=== PATIENT | male | born 1955 | race African-American/Black ===

== ENCOUNTER 2016-07-30 12:34 | Emergency (ER) | payer OTHER ==
[~2016-07-30] VITALS: Ht 177.8 cm; Wt 90.5 kg
[~2016-07-30 12:34] MED LIST: AMLO10TA2 PO; LISI10TA3 PO; TAMS5CAP PO
[2016-07-30 12:40] VITALS: BP 133/63; PULSE 81; RESP 14; TEMP 97.8; O2SAT 99
[2016-07-30] MEDS ORDERED: SODIUM CHLOR 0.9% 1000 ML INJ 1,000 ML IV ONE (12:44)
[2016-07-30] MEDS ORDERED: SODIUM CHLORIDE 0.9% FLUSH 10 ML FLUSH IVF PRN (12:45)
[2016-07-30 12:47] VITALS: BP 120/58; PULSE 78; RESP 14; RESP 15
--- NOTE | 2016-07-30 12:49 | PD ---
HPI Chief Complaint: Dizziness Time Seen by Provider: 12:47 Travel History International Travel<30 days: No Contact w/Intl Traveler<30days: No Traveled to known affect area: No History of Present Illness HPI Patient comes in complaining of dizziness and visual changes since resolved. Patient was reportedly standing outside by his truck when symptoms occurred. Patient's only known medical history reports his hypertension he reports that he took both his blood pressure pills this morning. Patient did have 2 beers prior to the symptoms occurring. Patient reports associated nausea but denies any vomiting, chest pain, shortness of breath, numbness or tingling anywhere, back pain, loss or change in bowel or bladder, numbness or weakness anywhere, loss of consciousness, or fevers. Patient states when the symptoms occurred he just sat down. Per EMS patient was hypotensive on scene and 90s systolically on initial evaluation patient was placed on oxygen and given fluids which resolved his blood pressure and symptoms. Patient states he feels fine currently. PFSH Past Medical History Blood Disorders: No Congestive Heart Failure: No Cerebrovascular Accident: No Diabetes: No Diminished Hearing: No Gastrointestinal Disorders: No Gout: Yes Hypertension: Yes Myocardial Infarction: No Renal Failure: No Seizures: No Ulcer: No Tetanus Vaccination: Unknown Influenza Vaccination: No Past Surgical History Abdominal Surgery: Yes (COLON MYIY-[id number] OF COLOSTOMY) Social History Alcohol Use: Yes (daily ) Tobacco Use: Yes Substance Use: No Allergies-Medications (Allergen,Severity, Reaction): Coded Allergies: Morphine (Verified Allergy, Mild, LOST 2 DAYS, 07/27/16) Reported Meds & Prescriptions Reported Meds & Active Scripts Active Flomax (Tamsulosin HCl) 0.4 Mg Cap 0.4 Mg PO HS Reported Lisinopril 10 Mg Tab 10 Mg PO DAILY Amlodipine (Amlodipine Besylate) 10 Mg Tab 10 Mg PO DAILY Review of Systems Except as stated in HPI: all other systems reviewed are Neg Physical Exam Narrative GENERAL: Well-developed, overly nourished, in no acute distress, and non-ill appearing. SKIN: Focused skin assessment warm and dry. HEAD: Atraumatic. Normocephalic. EYES: Pupils equal and round. EOMI. No scleral icterus. No injection or drainage. ENT: No nasal bleeding or discharge. Mucous membranes pink and moist. NECK: Trachea midline. Supple. No nuclear rigidity. CARDIOVASCULAR: Regular rate and rhythm. No murmur appreciated. RESPIRATORY: No accessory muscle use. No respiratory distress. Clear to auscultation. Breath sounds equal bilaterally. MUSCULOSKELETAL: No obvious deformities. No clubbing. No cyanosis. No edema. Full range of motion. NEUROLOGICAL: Awake and alert. No obvious cranial nerve deficits. Motor grossly within normal limits. Normal speech. PSYCHIATRIC: Appropriate mood and affect; insight and judgment normal. Data Data Last Documented VS Vital Signs Date Time Temp Pulse Resp B/P Pulse Ox O2 Delivery O2 Flow Rate FiO2 07/30/16 12:47 79 14 120/58 07/30/16 12:43 100 Nasal Cannula 2 07/30/16 12:40 97.8 Orders Electrocardiogram (07/30/16 12:44) Basic Metabolic Panel (Bmp) (07/30/16 12:44) Complete Blood Count With Diff (07/30/16 12:44) Magnesium (Mg) (07/30/16 12:44) Ckmb (Isoenzyme) Profile (07/30/16 12:44) Troponin I (07/30/16 12:44) Act Partial Throm Time (Ptt) (07/30/16 12:44) Prothrombin Time / Inr (Pt) (07/30/16 12:44) Urinalysis - C+S If Indicated (07/30/16 12:44) Chest, Single Ap (07/30/16 12:44) Ct Brain W/O Iv Contrast(Rout) (07/30/16 12:44) Ecg Monitoring (07/30/16 12:44) Iv Access Insert/Monitor (07/30/16 12:44) Oximetry (07/30/16 12:44) Sodium Chloride 0.9% Flush (Ns Flush) (07/30/16 12:45) Sodium Chlor 0.9% 1000 Ml Inj (Ns 1000 M (07/30/16 12:44) Orthostatic Vital Signs (07/30/16 12:44) CKMB (07/30/16 12:50) CKMB% (07/30/16 12:50) Labs Laboratory Tests Test 07/30/16 07/30/16 12:50 13:00 White Blood Count 6.4 TH/MM3 Red Blood Count 3.93 MIL/MM3 Hemoglobin 13.7 GM/DL Hematocrit 39.5 % Mean Corpuscular Volume 100.5 FL Mean Corpuscular Hemoglobin 34.8 PG Mean Corpuscular Hemoglobin 34.6 % Concent Red Cell Distribution Width 13.9 % Platelet Count 197 TH/MM3 Mean Platelet Volume 9.6 FL Neutrophils (%) (Auto) 56.9 % Lymphocytes (%) (Auto) 33.2 % Monocytes (%) (Auto) 7.6 % Eosinophils (%) (Auto) 1.8 % Basophils (%) (Auto) 0.5 % Neutrophils # (Auto) 3.6 TH/MM3 Lymphocytes # (Auto) 2.1 TH/MM3 Monocytes # (Auto) 0.5 TH/MM3 Eosinophils # (Auto) 0.1 TH/MM3 Basophils # (Auto) 0.0 TH/MM3 CBC Comment DIFF FINAL Differential Comment Prothrombin Time 10.3 SEC Prothromb Time International 0.9 RATIO Ratio Activated Partial 22.9 SEC Thromboplast Time Sodium Level 137 MEQ/L Potassium Level 4.4 MEQ/L Chloride Level 104 MEQ/L Carbon Dioxide Level 25.2 MEQ/L Anion Gap 8 MEQ/L Blood Urea Nitrogen 11 MG/DL Creatinine 1.32 MG/DL Estimat Glomerular Filtration 66 ML/MIN Rate Random Glucose 124 MG/DL Calcium Level 8.5 MG/DL Magnesium Level 2.4 MG/DL Total Creatine Kinase 147 U/L Creatine Kinase MB LESS THAN 0.5 NG/ML Troponin I LESS THAN 0.02 NG/ML Urine Color YELLOW Urine Turbidity CLEAR Urine pH 5.0 Urine Specific [place] 1.012 Urine Protein TRACE mg/dL Urine Glucose (UA) NEG mg/dL Urine Ketones NEG mg/dL Urine Occult Blood NEG Urine Nitrite NEG Urine Bilirubin NEG Urine Urobilinogen LESS THAN 2.0 MG/DL Urine Leukocyte Esterase NEG Urine RBC LESS THAN 1 /hpf Urine WBC 2 /hpf Urine Squamous Epithelial 1 /hpf Cells Urine Hyaline Casts 12 /lpf Urine Granular Casts 18 /lpf Urine Mucus FEW /lpf Microscopic Urinalysis Comment CULT NOT INDICATED MDM Medical Decision Making Medical Screen Exam Complete: Yes Emergency Medical Condition: Yes Interpretation(s) EKG reviewed by Dr. Mills, shows sinus rhythm ventricular rate of 84. No STEMI. CT head read by the radiologist shows: 1. No acute intracranial abnormality. 2. Left parietal scalp thickening versus contusion. Chest x-ray read by radiology shows: Subsegmental atelectasis of the right upper lobe. Differential Diagnosis Arrhythmia, acute coronary syndrome, volume depletion, likely abnormality, TIA, tumor, other Narrative Course Patient was seen exam. Initial laboratory studies were obtained and reviewed. Discussed patient with Dr. Mills who saw and evaluated the patient and recommended and patient admitted for further evaluation of possible TIA. Dr. Mills discussed this with the patient who is wanting to sign out AGAINST MEDICAL ADVICE. AMA: The risks of leaving against medical advice without further evaluation treatment were discussed with the patient. These risks include cardiac dysfunction, cardiac dysrhythmia, possible heart attack, possible stroke or . The patient indicated understanding of these risks and appeared to have the capacity to make this decision. Patient in no obvious distress upon re-evaluation. All pertinent laboratory/ Radiology result(s) discussed with patient/family. Instructed patient to return to ED immediately, if symptoms return/worsen. Pt showed understanding of above instructions. Pt ambulated without difficulty out of ED AGAINST MEDICAL ADVICE. Diagnosis Primary Impression: Left against medical advice Disposition: 07 AGAINST MEDICAL ADVICE Condition: Stable Nikolas Dean July 30, 2016 12:49
[2016-07-30 12:57] LABS: AUTOMATED NEUTROPHIL # 3.6 TH/MM3 (1.8-7.7); BASOPHIL % 0.5 % (0.0-2.0); EOSINOPHIL # 0.1 TH/MM3 (0-0.4); EOSINOPHIL % 1.8 % (0.0-4.0); HEMATOCRIT 39.5 % (39.0-51.0); HEMO FLAGS DIFF FINAL; LYMPH % 33.2 % (9.0-44.0); LYMPHOCYTE # 2.1 TH/MM3 (1.0-4.8); MEAN CELL VOLUME 100.5 FL (80.0-100.0); MEAN CORPUSCULAR HEMOGLOBIN 34.8 PG (27.0-34.0); MEAN CORPUSCULAR HGB CONC 34.6 % (32.0-36.0); MONO % 7.6 % (0.0-8.0); NEUT % 56.9 % (16.0-70.0); PLATELET COUNT 197 TH/MM3 (150-450); RED BLOOD COUNT 3.93 MIL/MM3 (4.50-5.90); RED CELL DISTRIBUTION WIDTH 13.9 % (11.6-17.2); WHITE BLOOD COUNT 6.4 TH/MM3 (4.0-11.0)
[2016-07-30 13:10] LABS: INTERNATIONAL NORMALIZED RATIO 0.9 RATIO; PROTHROMBIN TIME - PATIENT 10.3 SEC (9.8-11.6)
--- NOTE | 2016-07-30 13:10 | RADRPT ---
EXAM DATE/TIME: 07/30/2016 13:07 [facility] COMPARISON: No previous studies available for comparison. INDICATIONS : Dizziness, weakness starting today MEDICAL HISTORY : None. SURGICAL HISTORY : None. ENCOUNTER: Initial ACUITY: 1 day PAIN SCORE: 0/10 LOCATION: Bilateral chest FINDINGS: A single view of the chest demonstrates minimal subsegmental atelectasis right upper lobe without keira dence of mass, infiltrate or effusion. The cardiomediastinal contours are unremarkable. Osseous str uctures are intact. CONCLUSION: Subsegmental atelectasis right upper lobe. Cameron Crawford MD on July 30, 2016 at 13:08 Board Certified Radiologist. This report was verified electronically.
[2016-07-30 13:11] LABS: APTT (PATIENT) 22.9 SEC (24.3-30.1)
[2016-07-30 13:25] LABS: BLOOD, URINE NEG (NEG); COMMENT (UR) CULT NOT INDICATED; CULTURE IF INDICATED CULT NOT INDICATED; GLUCOSE,URINE NEG (NEG); GRANULAR CAST, URINE 18 /lpf; HYALINE CAST, URINE 12 /lpf (RARE); KETONE, URINE NEG (NEG); MUCUS URINE FEW /lpf (OCC); NITRITE,URINE NEG (NEG); SQUAMOUS EPITHELIAL CELL URINE 1 /hpf (0-5); URINE COLOR YELLOW (YELLW/STRAW)
[2016-07-30 13:26] LABS: ANION GAP 8 MEQ/L (5-15); BICARBONATE 25.2 MEQ/L (21.0-32.0); BLOOD UREA NITROGEN 11 MG/DL (7-18); CHLORIDE 104 MEQ/L (98-107); CREATINE KINASE 147 U/L (39-308); GLOMERULAR FILTRATION RATE 66 ML/MIN (>89); MAGNESIUM 2.4 MG/DL (1.5-2.5); SODIUM (NA) 137 MEQ/L (136-145)
[2016-07-30 13:40] LABS: POTASSIUM 4.4 MEQ/L (3.5-5.1)
[2016-07-30 13:52] LABS: CKMB LESS THAN 0.5 NG/ML (0.5-3.6)
--- NOTE | 2016-07-30 14:23 | RADRPT ---
EXAM DATE/TIME: 07/30/2016 14:15 [facility] COMPARISON: No previous studies available for comparison. INDICATIONS : Dizziness. RADIATION DOSE: 44.17 CTDIvol (mGy) MEDICAL HISTORY : Hypertension. SURGICAL HISTORY : None. ENCOUNTER: Initial ACUITY: 1 day PAIN SCALE: 0/10 LOCATION: cranial TECHNIQUE: Multiple contiguous axial images were obtained of the head. Using automated exposure control and adj ustment of the mA and/or kV according to patient size, radiation dose was kept as low as reasonably a chievable to obtain optimal diagnostic quality images. FINDINGS: CEREBRUM: The ventricles are normal for age. No evidence of midline shift, mass lesion, hemorrhage or acute in farction. No extra-axial fluid collections are seen. POSTERIOR FOSSA: The cerebellum and brainstem are intact. The 4th ventricle is midline. The cerebellopontine angle i s unremarkable. EXTRACRANIAL: The visualized portion of the orbits is intact. Left parietal scalp thickening versus contusion. SKULL: The calvaria is intact. No evidence of skull fracture. CONCLUSION: 1. No acute intracranial abnormality. 2. Left parietal scalp thickening versus contusion. Cameron Crawford MD on July 30, 2016 at 14:20 Board Certified Radiologist. This report was verified electronically.
--- NOTE | 2016-07-30 15:39 | PD ---
Physical Exam Narrative I, Dr. Mills, have reviewed the advance practice practitioner's documentation and am in agreement, met with the patient face to face, made the diagnosis, and the medical decision making was done by me. *My assessment and Findings: Posterior stroke vs. vasovagal near syncope vs. dehydration 61yo M with HTN and HLD here with episode of dizziness while standing and had blurred vision from bilateral eyes. Pt then sat down and felt nauseous. States his symptoms started to resolve while on the ambulance after they gave him oxygen. Denies any focal weakness or numbness. Symptoms lasted about 10 minutes. Pt has not been vomiting and having diarrhea. Labs reviewed, no leukocytosis. H/H normal. Troponin negative. Glucose 124. UA showed leukocyte or nitrite. CXR showed subsegmental atelectasis right upper lobe. CT brain showed no acute intracranial abnormality. Pt states this has never happened before and there was no spinning. Exam was negative for neurologic deficits. I am concern about possibility of posterior TIA. I recommended observation for TIA work up. Pt however refused. AMA: The risks of leaving against medical advice without further evaluation treatment were discussed with the patient. These risks include cardiac dysfunction, cardiac dysrhythmia, possible heart attack, possible stroke or . The patient indicated understanding of these risks and appeared to have the capacity to make this decision. Data Data Last Documented VS Vital Signs Date Time Temp Pulse Resp B/P Pulse Ox O2 Delivery O2 Flow Rate FiO2 07/30/16 12:47 79 14 120/58 07/30/16 12:43 100 Nasal Cannula 2 07/30/16 12:40 97.8 Orders Electrocardiogram (07/30/16 12:44) Basic Metabolic Panel (Bmp) (07/30/16 12:44) Complete Blood Count With Diff (07/30/16 12:44) Magnesium (Mg) (07/30/16 12:44) Ckmb (Isoenzyme) Profile (07/30/16 12:44) Troponin I (07/30/16 12:44) Act Partial Throm Time (Ptt) (07/30/16 12:44) Prothrombin Time / Inr (Pt) (07/30/16 12:44) Urinalysis - C+S If Indicated (07/30/16 12:44) Chest, Single Ap (07/30/16 12:44) Ct Brain W/O Iv Contrast(Rout) (07/30/16 12:44) Ecg Monitoring (07/30/16 12:44) Iv Access Insert/Monitor (07/30/16 12:44) Oximetry (07/30/16 12:44) Sodium Chloride 0.9% Flush (Ns Flush) (07/30/16 12:45) Sodium Chlor 0.9% 1000 Ml Inj (Ns 1000 M (07/30/16 12:44) Orthostatic Vital Signs (07/30/16 12:44) CKMB (07/30/16 12:50) CKMB% (07/30/16 12:50) Labs Laboratory Tests Test 07/30/16 07/30/16 12:50 13:00 White Blood Count 6.4 TH/MM3 Red Blood Count 3.93 MIL/MM3 Hemoglobin 13.7 GM/DL Hematocrit 39.5 % Mean Corpuscular Volume 100.5 FL Mean Corpuscular Hemoglobin 34.8 PG Mean Corpuscular Hemoglobin 34.6 % Concent Red Cell Distribution Width 13.9 % Platelet Count 197 TH/MM3 Mean Platelet Volume 9.6 FL Neutrophils (%) (Auto) 56.9 % Lymphocytes (%) (Auto) 33.2 % Monocytes (%) (Auto) 7.6 % Eosinophils (%) (Auto) 1.8 % Basophils (%) (Auto) 0.5 % Neutrophils # (Auto) 3.6 TH/MM3 Lymphocytes # (Auto) 2.1 TH/MM3 Monocytes # (Auto) 0.5 TH/MM3 Eosinophils # (Auto) 0.1 TH/MM3 Basophils # (Auto) 0.0 TH/MM3 CBC Comment DIFF FINAL Differential Comment Prothrombin Time 10.3 SEC Prothromb Time International 0.9 RATIO Ratio Activated Partial 22.9 SEC Thromboplast Time Sodium Level 137 MEQ/L Potassium Level 4.4 MEQ/L Chloride Level 104 MEQ/L Carbon Dioxide Level 25.2 MEQ/L Anion Gap 8 MEQ/L Blood Urea Nitrogen 11 MG/DL Creatinine 1.32 MG/DL Estimat Glomerular Filtration 66 ML/MIN Rate Random Glucose 124 MG/DL Calcium Level 8.5 MG/DL Magnesium Level 2.4 MG/DL Total Creatine Kinase 147 U/L Creatine Kinase MB LESS THAN 0.5 NG/ML Troponin I LESS THAN 0.02 NG/ML Urine Color YELLOW Urine Turbidity CLEAR Urine pH 5.0 Urine Specific [place] 1.012 Urine Protein TRACE mg/dL Urine Glucose (UA) NEG mg/dL Urine Ketones NEG mg/dL Urine Occult Blood NEG Urine Nitrite NEG Urine Bilirubin NEG Urine Urobilinogen LESS THAN 2.0 MG/DL Urine Leukocyte Esterase NEG Urine RBC LESS THAN 1 /hpf Urine WBC 2 /hpf Urine Squamous Epithelial 1 /hpf Cells Urine Hyaline Casts 12 /lpf Urine Granular Casts 18 /lpf Urine Mucus FEW /lpf Microscopic Urinalysis Comment CULT NOT INDICATED MDM Supervised Visit with [facility]: Yes Interpretation(s) EKG: NSR 84bpm. LAD. Q wave V2, V3. No ST segment elevation or depression. Diagnosis Primary Impression: Left against medical advice Patient Instructions: General Instructions Departure Forms: Tests/Procedures Disposition: 07 AGAINST MEDICAL ADVICE Condition: Stable Dorcas Mills DO July 30, 2016 15:39
--- NOTE | 2016-07-31 14:57 | EKG ---
Date Performed: 07/30/2016 Time Performed: 12:42:12 PTAGE: 61 years EKG: Sinus rhythm SEPTAL MYOCARDIAL INFARCTION ABNORMAL ECG INTERPRETATION BASED ON A DEFAULT AGE OF 38 YEARS NO PREVIOUS TRACING DOCTOR: Briana San Interpretating Date/Time 07/31/2016 14:56:21
== END 2016-07-30 15:21 | disposition left against medical advice (07) ==
LOC: NEPE 12:34
DX: J98.11 Atelectasis (principal); R94.31 Abnormal electrocardiogram [ECG] [EKG]; I10 Essential (primary) hypertension; Z72.0 Tobacco use; Z53.21 Procedure and treatment not carried out due to patient leaving prior to being seen by health care provider
CPT/HCPCS: 70450; 71010; 80048; 81001; 82550; 82552; 83735; 84484; 85025; 85610; 85730; 93005; 96360; 99285; J7030

== ENCOUNTER → 2016-11-01 | Day surgery (SDC) | payer OTHER ==
[~2016-11-01] VITALS: Ht 177.8 cm; Wt 90.5 kg
[~2016-11-01] MED LIST changes: +ACETAMINOPHEN/HYDROcodone 325 MG/5 MG TAB PO PRN; +CHLORHEXIDINE GLUCONATE 2 % 1 PACK (2 CLOTHS) TOPICAL PRN; +CIPROFLOXACIN/DEXT 400 MG/200 ML IV SCH; +DEXAMETHASONE SOD PHOS 4 MG/ML VIAL ONE; +FAMOTIDINE 20 MG/2 ML VIAL ONE; +GEMF600 PO; +INSULIN HUMAN REGULAR 1,000 UNITS/10 ML VIAL SQ PRN; +LACTATED RINGER'S 1000 ML IV PRN; +METOPROLOL TARTRATE 25 MG TAB PO PRN; +MIDAZOLAM HCL 2 MG/2 ML VIAL ONE; +ONDANSETRON HCL 4 MG/2 ML VIAL IV PUSH PRN; +POVIDONE IODINE 5% (ANTISEPSIS KIT) 4 APPLICATIONS EACH NARE PRN; +PROPOFOL 200 MG/20 ML AMP IV ONE; +SOD PHOSPHATE/SOD BIPHOSPHATE (ADULT) ENEMA 133ML RECTAL ONE; +SODIUM CHLORID 0.9% 500 ML IV PRN
[2016-11-01 10:11] VITALS: BP 134/68; PULSE 84; RESP 18; TEMP 98; O2SAT 96
[2016-11-01 10:44] LABS: AUTOMATED NEUTROPHIL # 3.2 TH/MM3 (1.8-7.7); BASOPHIL % 0.7 % (0.0-2.0); EOSINOPHIL # 0.1 TH/MM3 (0-0.4); EOSINOPHIL % 2.4 % (0.0-4.0); HEMATOCRIT 41.5 % (39.0-51.0); HEMO FLAGS DIFF FINAL; LYMPH % 25.9 % (9.0-44.0); LYMPHOCYTE # 1.3 TH/MM3 (1.0-4.8); MEAN CELL VOLUME 102.1 FL (80.0-100.0); MEAN CORPUSCULAR HEMOGLOBIN 34.1 PG (27.0-34.0); MEAN CORPUSCULAR HGB CONC 33.3 % (32.0-36.0); MONO % 8.5 % (0.0-8.0); NEUT % 62.5 % (16.0-70.0); PLATELET COUNT 188 TH/MM3 (150-450); RED BLOOD COUNT 4.07 MIL/MM3 (4.50-5.90); RED CELL DISTRIBUTION WIDTH 13.1 % (11.6-17.2); WHITE BLOOD COUNT 5.1 TH/MM3 (4.0-11.0)
--- NOTE | 2016-11-01 12:32 | PD.OP ---
Operative Report Date of Surgery: Nov 01, 2016 Preoperative Diagnosis: Elevated PSA of 6.7 Postoperative Diagnosis: Same Procedure: Transrectal ultrasound with prostate needle guided biopsies Anesthesia: Mac Surgeon: Titi Lynne [place] Operator(s): None Resident Surgeon: None Operation and Findings: 61-year-old male with findings of an elevated PSA of 6.7. Patient was unable to tolerate prostate needle biopsy in the office, therefore, he was taken to the operating room under sedation. Risk and benefits were discussed preoperatively and he is willing to proceed. Patient is brought to the operating room and identified by myself as Jayden Frost. He was left on the stretcher in the left lateral recumbent position, he received preprocedure antibiotics, and Mac anesthesia was administered. Transrectal ultrasound probe was inserted into the rectum and volumetric measurements of the prostate were then taken. The volume of the prostate was noted to be 55.82 cm without evidence of hypoechoic lesions identified. A median lobe was identified. A standard 12 core biopsy was then taking using the biopsy needle and the cores were then sent to pathology. He tolerated the procedure well and was awoken and transferred to her room in stable condition. He will follow-up in the office in a few weeks to review his pathology findings. Titi Lynne DO Nov 01, 2016 12:32
[2016-11-01 13:51] VITALS: BP 139/75; PULSE 81; RESP 18; TEMP 98.2; O2SAT 98
== END | disposition home or self-care (01) ==
LOC: HSDC 09:32
PROVIDERS: ATTEND Urology
DX: R97.20 Elevated prostate specific antigen [PSA] (principal); I10 Essential (primary) hypertension; E78.00 Pure hypercholesterolemia, unspecified; M19.90 Unspecified osteoarthritis, unspecified site; K21.9 Gastro-esophageal reflux disease without esophagitis; M10.9 Gout, unspecified; F17.210 Nicotine dependence, cigarettes, uncomplicated; Z79.899 Other long term (current) drug therapy
CPT/HCPCS: 00902; 55700; 85025; 88305; J0744; J1100; J2250; J7120